=== PATIENT | male | born 1975 | race African-American/Black ===

== ENCOUNTER → 2018-03-05 | Outpatient (CLI) | payer MEDICAID ==
[~2018-03-05] MED LIST: BARIUM SULFATE 176 GM SUSP.RECON ONE; EZ-HD SUSPENSION(BARIUM SULFATE 340GM) PO ONE
== END | disposition home or self-care (01) ==
LOC: RAD 09:35
PROVIDERS: ATTEND Internal Medicine Gastroenterology
DX: R10.13 Epigastric pain (principal)
CPT/HCPCS: 74246